=== PATIENT | female | born 2000 | race Caucasian/White ===

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

== ENCOUNTER 2022-09-23 16:19 | Emergency (ER) | payer OTHER ==
[~2022-09-23] VITALS: Ht 154.9 cm; Wt 77.3 kg
[2022-09-23 16:33] VITALS: BP 148/85
[2022-09-23] MEDS ORDERED: VALA500T PO (16:48)
== END 2022-09-23 17:05 | disposition home or self-care (01) ==
LOC: EMS 16:19
DX: G51.0 Bell's palsy (principal)
CPT/HCPCS: 99283; Z7502

== ENCOUNTER 2024-09-26 03:23 | Emergency (ER) | payer OTHER ==
[~2024-09-26] VITALS: Ht 154.9 cm; Wt 82.3 kg
[~2024-09-26 03:23] MED LIST: VALA500T PO
[2024-09-26 03:24] VITALS: TEMP 98.3
[2024-09-26 04:03] LABS: BASOPHILS % (AUTO) 0.5 % (0.0-2.0); EOSINOPHILS % (AUTO) 0.5 % (1.0-6.0); HEMATOCRIT 42.1 % (36-46); HEMOGLOBIN 14.3 g/dL (12.0-16.0); LYMPHOCYTES # (AUTO) 3.4 K/uL (1.0-4.8); LYMPHOCYTES % (AUTO) 36.9 % (22.0-44.0); MEAN CORPUSCULAR HEMOGLOBIN 29.7 pg (26.0-34.0); MEAN CORPUSCULAR VOLUME 87 fL (80-100); MONOCYTES # (AUTO) 0.4 K/uL (0.1-1.0); MONOCYTES % (AUTO) 4.7 % (2.0-9.0); NEUTROPHILS # (AUTO) 5.2 K/uL (1.8-7.7); NEUTROPHILS % (AUTO) 57.4 % (40.0-70.0); PLATELET COUNT (AUTO) 367 K/uL (150-450); RED BLOOD CELL COUNT(AUTO) 4.83 MIL/uL (4.00-5.20); RED CELL DISTRIBUTION WIDTH 13.4 % (11.5-14.5); WHITE BLOOD COUNT (AUTO) 9.1 K/uL (4.5-11.0)
[2024-09-26 04:07] LABS: ANION GAP 13 mmol/L (8-16); CALCIUM, TOTAL 9.8 mg/dL (8.8-10.5); CARBON DIOXIDE 28 mmol/L (22-29); CHLORIDE 99 mmol/L (98-107); CREATININE 0.81 mg/dL (0.60-1.30); GLOMERULAR FILTR. RATE CALC > 60 mL/min (>60); GLUCOSE,RANDOM 112 mg/dL (70-110); POTASSIUM 3.4 mmol/L (3.5-5.1); SODIUM SERUM 140 mmol/L (136-145); UREA NITROGEN, BLOOD 10 mg/dL (7-18)
[2024-09-26] MEDS: MAG HYDROX/ALUMINUM HYD/SIMETH ES 30 ML SUSPENSION UDCUP PO ONE (04:10)
[2024-09-26] MEDS: FAMOTIDINE 20 MG TABLET PO ONE (04:10)
[2024-09-26 04:13] LABS: ALBUMIN 3.7 g/dL (3.4-5.0); BILIRUBIN,DIRECT 0.2 mg/dL (0.00-0.20); BILIRUBIN,TOTAL 0.5 mg/dL (0.1-1.0); TOTAL PROTEIN, SERUM 8.6 g/dL (6.4-8.2)
[2024-09-26 04:24] LABS: HCG,QUANTITATIVE < 1 mIU/mL (0-6); LIPASE 22 U/L (16-77)
[2024-09-26 04:50] VITALS: BP 125/70; PULSE 88; RESP 16; O2SAT 100
[2024-09-26] MEDS ORDERED: FAMO20 PO (04:51)
== END 2024-09-26 05:13 | disposition home or self-care (01) ==
LOC: EDUNIT# 03:23 → EMS 03:23
DX: K21.9 Gastro-esophageal reflux disease without esophagitis (principal); R10.11 Right upper quadrant pain; R51.9 Headache, unspecified; F20.9 Schizophrenia, unspecified; Z79.624 Long term (current) use of inhibitors of nucleotide synthesis
CPT/HCPCS: 80048; 80076; 83690; 84702; 85025; 99283

== ENCOUNTER 2024-10-21 15:23 | Emergency (ER) | payer OTHER ==
[~2024-10-21] VITALS: Ht 154.9 cm; Wt 82.7 kg
[~2024-10-21 15:23] MED LIST changes: +FAMO20 PO
[2024-10-21 15:30] VITALS: TEMP 97.5
[2024-10-21 15:51] LABS: BASOPHILS % (AUTO) 0.6 % (0.0-2.0); EOSINOPHILS % (AUTO) 0.8 % (1.0-6.0); HEMATOCRIT 41.9 % (36-46); HEMOGLOBIN 13.8 g/dL (12.0-16.0); LYMPHOCYTES % (AUTO) 40.9 % (22.0-44.0); MEAN CORPUSCULAR HEMOGLOBIN 28.9 pg (26.0-34.0); MEAN CORPUSCULAR VOLUME 87 fL (80-100); MONOCYTES # (AUTO) 0.8 K/uL (0.1-1.0); MONOCYTES % (AUTO) 8.2 % (2.0-9.0); NEUTROPHILS # (AUTO) 4.9 K/uL (1.8-7.7); NEUTROPHILS % (AUTO) 49.5 % (40.0-70.0); PLATELET COUNT (AUTO) 332 K/uL (150-450); RED BLOOD CELL COUNT(AUTO) 4.79 MIL/uL (4.00-5.20); RED CELL DISTRIBUTION WIDTH 13.5 % (11.5-14.5); WHITE BLOOD COUNT (AUTO) 9.9 K/uL (4.5-11.0)
[2024-10-21 15:59] LABS: ANION GAP 7 mmol/L (8-16); CALCIUM, TOTAL 9.2 mg/dL (8.8-10.5); CARBON DIOXIDE 28 mmol/L (22-29); CHLORIDE 103 mmol/L (98-107); CREATININE 0.77 mg/dL (0.60-1.30); GLOMERULAR FILTR. RATE CALC > 60 mL/min (>60); GLUCOSE,RANDOM 98 mg/dL (70-110); POTASSIUM 3.8 mmol/L (3.5-5.1); SODIUM SERUM 137 mmol/L (136-145); UREA NITROGEN, BLOOD 15 mg/dL (7-18)
[2024-10-21] MEDS ORDERED: NORE0.3513 PO (16:11)
[2024-10-21] MEDS ORDERED: HYDR-3831 PO (16:11)
[2024-10-21] MEDS ORDERED: RISP1TAB48 PO (16:11)
[2024-10-21] MEDS ORDERED: SERT-440 PO (16:11)
[2024-10-21] MEDS ORDERED: CHOL500045 PO (16:11)
[2024-10-21] MEDS: SODIUM CHLORIDE 0.9% 1,000 ML IV ONE (16:26)
[2024-10-21] MEDS: ACETAMINOPHEN 500 MG TABLET PO ONE (16:27)
[2024-10-21] MEDS: METOCLOPRAMIDE HCL 5 MG/ML 2 ML VIAL IVP ONE (16:32)
[2024-10-21] MEDS: ONDANSETRON HCL 4 MG/2 ML VIAL IVP ONE (16:32)
[2024-10-21] MEDS: DiphenhydrAMINE HCL 50 MG/ML VIAL IVP ONE (16:32)
[2024-10-21 17:55] VITALS: BP 109/60; PULSE 73; RESP 18; O2SAT 98
== END 2024-10-21 18:18 | disposition home or self-care (01) ==
LOC: EMS 15:23
DX: G43.909 Migraine, unspecified, not intractable, without status migrainosus (principal); F20.9 Schizophrenia, unspecified; Z79.624 Long term (current) use of inhibitors of nucleotide synthesis
CPT/HCPCS: 99284; 96374; 96375; 96361; 80048; 84703; 85025; 36415; J1200; J2765; J2405; J7030